=== PATIENT | male | born 1955 | race Two or more races ===

== ENCOUNTER 2021-04-27 13:09 | Inpatient (IN) | payer OTHER ==
[2021-04-27] MEDS ORDERED: ACETAMINOPHEN 1000 MG/100 ML BAG IVPB ONE (15:40)
[2021-04-27] MEDS ORDERED: ACETAMINOPHEN INJECTION 100 ML IVPB ONE (15:42)
[2021-04-27 16:25] LABS: BASO % 0.6 % (0-2.0); EOS % 2.9 % (0-4.5); HEMATOCRIT 22.8 % (35.4-49); HEMOGLOBIN 7.9 GM/dL (11.7-16.9); MCH 29.5 pg (25.7-33.7); MCHC 34.4 g/dl (32.0-35.9); MEAN CELL VOLUME 85.7 fl (80-96); MEAN PLT VOLUME 8.3 fl (7.5-11.1); NEUT % 61.5 % (42.8-82.8); PLATELET COUNT 344 10^3/uL (134-434); RBC 2.66 M/mm3 (4.00-5.60); RDW 14.6 % (11.9-15.9); WHITE BLOOD COUNT 6.3 K/mm3 (4.0-10.0)
[2021-04-27 17:01] LABS: CHLORIDE 95 mmol/L (98-107); SODIUM 130 mmol/L (136-145)
[2021-04-27 17:03] LABS: CALCIUM 11.6 mg/dL (8.5-10.1)
[2021-04-27 17:04] LABS: ALBUMIN 3.3 g/dl (3.4-5.0); ANION GAP 10 MMOL/L (8-16); BLOOD UREA NITROGEN 32.4 mg/dL (7-18); CO2 24 mmol/L (21-32); GLUCOSE,RANDOM 97 mg/dL (74-106)
[2021-04-27 17:07] LABS: CREATININE 1.3 mg/dL (0.55-1.3); SGOT/AST 42 U/L (15-37); SGPT/ALT 15 U/L (13-61)
[2021-04-27 17:09] LABS: BILIRUBIN,TOTAL 0.4 mg/dL (0.2-1); TOT PROT 6.6 g/dl (6.4-8.2)
[2021-04-27 17:10] LABS: ALK PHOS 245 U/L (45-117)
[2021-04-27 17:23] LABS: EPI CELLS 0 /uL (0-25.1); HYALINE CASTS 9 /uL (0-3.1); URINE APPEARANCE CLOUDY; URINE BACTERIA >9,000 /uL (0-1359); URINE BILIRUBIN NEGATIVE (NEGATIVE); URINE COLOR YELLOW; URINE GLUCOSE (UA) NEGATIVE (NEGATIVE); URINE KETONE NEGATIVE (NEGATIVE); URINE LEUK ESTERASE 2+ (NEGATIVE); URINE NITRITE NEGATIVE (NEGATIVE); URINE PROTEIN NEGATIVE (NEGATIVE); URINE RBC 16 /uL (0-23.9); URINE UROBILINOGEN 0.2 mg/dL (0.2-1.0); URINE WBC 316 /uL (0-25.8)
[2021-04-27] MEDS ORDERED: CEFTRIAXONE 1,000 MG in DEXTROSE 5%-WATER - 50 ML IVPB ONE (17:58)
[2021-04-27] MEDS ORDERED: CEFTRIAXONE 1 GM/50 ML BAG ONE (20:18)
[2021-04-27] MEDS ORDERED: DOCUSATE SODIUM 100 MG CAPSULE (FP) PO PRN (21:52)
[2021-04-27] MEDS ORDERED: ACETAMINOPHEN 325 MG TABLET (FP) PO PRN (21:52)
[2021-04-27] MEDS ORDERED: SODIUM CHLORIDE 500 ML IV STA (21:52)
[2021-04-27] MEDS ORDERED: SODIUM CHLORIDE 1,000 ML IV SCH (22:00)
[2021-04-27] MEDS ORDERED: HEPARIN NA (PORCINE) 5,000 UNITS/ML 1ML VIAL ONE (22:53)
[2021-04-27] MEDS: HEPARIN NA (PORCINE) 5,000 UNITS/ML 1ML VIAL SQ SCH (23:07)
[2021-04-28 03:40] LABS: PHOSPHOROUS 4.8 mg/dL (2.5-4.9)
[2021-04-28] MEDS: HEPARIN NA (PORCINE) 5,000 UNITS/ML 1ML VIAL SQ SCH ×2 (06:59→13:49)
[2021-04-28] MEDS ORDERED: INSULIN SLIDING SCALE (NOVOLOG) 1 VIAL SQ SCH (07:00)
[2021-04-28 08:09] LABS: INR 1.15 (0.83-1.09); PROTHROMBIN TIME (PATIENT) 13.3 SEC (9.7-13.0)
[2021-04-28 08:10] LABS: HEMATOCRIT 26.7 % (35.4-49); HEMOGLOBIN 8.9 GM/dL (11.7-16.9); MCH 28.9 pg (25.7-33.7); MCHC 33.3 g/dl (32.0-35.9); MEAN CELL VOLUME 86.6 fl (80-96); MEAN PLT VOLUME 8.8 fl (7.5-11.1); PLATELET COUNT 423 10^3/uL (134-434); RBC 3.08 M/mm3 (4.00-5.60); RDW 14.5 % (11.9-15.9); WHITE BLOOD COUNT 7.5 K/mm3 (4.0-10.0)
[2021-04-28] MEDS ORDERED: oxyCODONE HCL 5 MG TABLET PO PRN (08:14)
[2021-04-28] MEDS ORDERED: TAMSULOSIN HCL 0.4 MG CAP ONE (08:29)
[2021-04-28] MEDS: INSULIN SLIDING SCALE (NOVOLOG) 1 VIAL SQ SCH ×4 (08:30→22:15)
[2021-04-28] MEDS: TAMSULOSIN HCL 0.4 MG CAP PO SCH (08:43)
[2021-04-28] MEDS: oxyCODONE HCL 5 MG TABLET PO PRN ×3 (08:43→23:43)
[2021-04-28 08:47] LABS: BLOOD UREA NITROGEN 35.9 mg/dL (7-18); CALCIUM 12.1 mg/dL (8.5-10.1); MAGNESIUM 1.9 mg/dL (1.8-2.4)
[2021-04-28 08:48] LABS: ALBUMIN 3.6 g/dl (3.4-5.0)
[2021-04-28 08:51] LABS: CREATININE 1.4 mg/dL (0.55-1.3)
[2021-04-28 08:52] LABS: BILIRUBIN,TOTAL 0.3 mg/dL (0.2-1); TOT PROT 7.4 g/dl (6.4-8.2)
[2021-04-28 10:12] LABS: RETICULOCYTES 1.73 % (0.5-1.5)
[2021-04-28] MEDS: SODIUM CHLORIDE 1,000 ML IV SCH (10:41)
[2021-04-28] MEDS ORDERED: SERTRALINE HCL 50 MG TABLET (FP) ONE (11:16)
[2021-04-28] MEDS ORDERED: cefTRIAXone SODIUM 1 GM VIAL ONE (11:16)
[2021-04-28] MEDS: SERTRALINE HCL 50 MG TABLET (FP) PO SCH (11:50)
[2021-04-28] MEDS: CEFTRIAXONE 1 GM in DEXTROSE 5%-WATER - 50 ML IVPB SCH (11:50)
[2021-04-28] MEDS: LIDOCAINE 5% TOPICAL PATCH TP SCH (14:00)
[2021-04-28] MEDS: ACETAMINOPHEN 500 MG TABLET (FP) PO PRN (18:27)
[2021-04-28] MEDS: LIDOCAINE PATCH REMOVAL MC SCH (22:15)
[2021-04-28] MEDS: ATORVASTATIN CA 40 MG TABLET (FP) PO SCH (22:15)
[2021-04-29] MEDS: oxyCODONE HCL 5 MG TABLET PO PRN ×3 (04:56→22:06)
[2021-04-29] MEDS ORDERED: SODIUM CHLORIDE 1,000 ML IV SCH (05:00)
[2021-04-29] MEDS: INSULIN SLIDING SCALE (NOVOLOG) 1 VIAL SQ SCH ×4 (06:57→22:12)
[2021-04-29 09:02] LABS: HEMATOCRIT 24.4 % (35.4-49); HEMOGLOBIN 8.4 GM/dL (11.7-16.9); MCH 29.5 pg (25.7-33.7); MCHC 34.3 g/dl (32.0-35.9); MEAN CELL VOLUME 85.9 fl (80-96); PLATELET COUNT 407 10^3/uL (134-434); RBC 2.84 M/mm3 (4.00-5.60); RDW 14.9 % (11.9-15.9); WHITE BLOOD COUNT 5.4 K/mm3 (4.0-10.0)
[2021-04-29 09:13] LABS: ALBUMIN 3.1 g/dl (3.4-5.0); CALCIUM 12.8 mg/dL (8.5-10.1)
[2021-04-29 09:16] LABS: CREATININE 1.4 mg/dL (0.55-1.3)
[2021-04-29 09:17] LABS: TOT PROT 6.5 g/dl (6.4-8.2)
[2021-04-29 09:18] LABS: BILIRUBIN,TOTAL 0.3 mg/dL (0.2-1)
[2021-04-29] MEDS ORDERED: DEXTROSE 5%-WATER - 50 ML IVPB ONE (09:44)
[2021-04-29] MEDS ORDERED: cefTRIAXone SODIUM 1 GM VIAL ONE (09:44)
[2021-04-29] MEDS: ACETAMINOPHEN 500 MG TABLET (FP) PO PRN (09:52)
[2021-04-29] MEDS: SERTRALINE HCL 50 MG TABLET (FP) PO SCH (09:52)
[2021-04-29] MEDS: ENOXAPARIN NA (PORCINE) 40 MG/0.4 ML DISP.SYRIN SQ SCH (09:53)
[2021-04-29] MEDS: LIDOCAINE 5% TOPICAL PATCH TP SCH (09:53)
[2021-04-29] MEDS: CEFTRIAXONE 1 GM in DEXTROSE 5%-WATER - 50 ML IVPB SCH (09:53)
[2021-04-29] MEDS: SODIUM CHLORIDE 1,000 ML IV SCH (09:53)
[2021-04-29] MEDS: TAMSULOSIN HCL 0.4 MG CAP PO SCH (09:53)
[2021-04-29] MEDS ORDERED: oxyCODONE HCL 5 MG TABLET PO PRN (10:11)
[2021-04-29] MEDS ORDERED: ZOLEDRONIC ACID 4 MG in SODIUM CHLORIDE 100 ML IVPB ONE ×2 (11:00→13:15)
[2021-04-29] MEDS ORDERED: PT OWN MED DRAWER 7, Y5N ONE ×2 (12:23→14:56)
[2021-04-29] MEDS: ATORVASTATIN CA 40 MG TABLET (FP) PO SCH (22:06)
[2021-04-29] MEDS: LIDOCAINE PATCH REMOVAL MC SCH (22:07)
[2021-04-30] MEDS: oxyCODONE HCL 5 MG TABLET PO PRN ×3 (03:56→19:08)
[2021-04-30] MEDS: INSULIN SLIDING SCALE (NOVOLOG) 1 VIAL SQ SCH ×4 (06:25→21:40)
[2021-04-30 09:08] LABS: BASO % 0.7 % (0-2.0); EOS % 4.1 % (0-4.5); HEMATOCRIT 24.6 % (35.4-49); HEMOGLOBIN 8.2 GM/dL (11.7-16.9); LYMPH % 19.7 % (8-40); MCH 28.8 pg (25.7-33.7); MCHC 33.5 g/dl (32.0-35.9); MEAN CELL VOLUME 86.1 fl (80-96); MEAN PLT VOLUME 8.1 fl (7.5-11.1); MONO % 3.4 % (3.8-10.2); NEUT % 72.1 % (42.8-82.8); PLATELET COUNT 425 10^3/uL (134-434); RBC 2.86 M/mm3 (4.00-5.60); RDW 14.4 % (11.9-15.9); WHITE BLOOD COUNT 4.7 K/mm3 (4.0-10.0)
[2021-04-30] MEDS ORDERED: cefTRIAXone SODIUM 1 GM VIAL ONE (09:31)
[2021-04-30] MEDS ORDERED: DEXTROSE 5%-WATER - 50 ML IVPB ONE (09:31)
[2021-04-30] MEDS: SERTRALINE HCL 50 MG TABLET (FP) PO SCH (09:41)
[2021-04-30] MEDS: TAMSULOSIN HCL 0.4 MG CAP PO SCH (09:41)
[2021-04-30] MEDS: LIDOCAINE 5% TOPICAL PATCH TP SCH (09:41)
[2021-04-30] MEDS: ENOXAPARIN NA (PORCINE) 40 MG/0.4 ML DISP.SYRIN SQ SCH (09:42)
[2021-04-30] MEDS: CEFTRIAXONE 1 GM in DEXTROSE 5%-WATER - 50 ML IVPB SCH (09:42)
[2021-04-30 09:52] LABS: ALBUMIN 3.1 g/dl (3.4-5.0); CALCIUM 11.8 mg/dL (8.5-10.1)
[2021-04-30 09:53] LABS: BLOOD UREA NITROGEN 32.3 mg/dL (7-18)
[2021-04-30 09:55] LABS: CREATININE 1.4 mg/dL (0.55-1.3); PHOSPHOROUS 3.9 mg/dL (2.5-4.9)
[2021-04-30 09:56] LABS: MAGNESIUM 1.7 mg/dL (1.8-2.4)
[2021-04-30 09:57] LABS: BILIRUBIN,TOTAL 0.7 mg/dL (0.2-1); TOT PROT 6.4 g/dl (6.4-8.2)
[2021-04-30] MEDS ORDERED: ONDANSETRON 4 MG/2 ML VIAL IVPUSH PRN (10:48)
[2021-04-30] MEDS ORDERED: MAGNESIUM OXIDE 400 MG TABLET (FP) PO ONE (11:00)
[2021-04-30] MEDS: ACETAMINOPHEN 500 MG TABLET (FP) PO PRN ×2 (11:07→16:48)
[2021-04-30] MEDS ORDERED: SODIUM CHLORIDE 0.9% 1000 ML INFUS.BAG IV ONE (12:30)
[2021-04-30] MEDS: SODIUM CHLORIDE 0.9% 1000 ML INFUS.BAG IV ONE ×2 (13:00→14:04)
[2021-04-30 13:20] LABS: URINE APPEARANCE CLEAR; URINE BILIRUBIN NEGATIVE (NEGATIVE); URINE COLOR YELLOW; URINE GLUCOSE (UA) NEGATIVE (NEGATIVE); URINE KETONE NEGATIVE (NEGATIVE); URINE LEUK ESTERASE NEGATIVE (NEGATIVE); URINE NITRITE NEGATIVE (NEGATIVE); URINE PROTEIN NEGATIVE (NEGATIVE); URINE UROBILINOGEN 0.2 mg/dL (0.2-1.0)
[2021-04-30] MEDS ORDERED: MEROPENEM 1 GM VIAL (RESTRICTED TO ID) IVPB ONE ×2 (13:40→16:33)
[2021-04-30] MEDS ORDERED: DEXTROSE 5%-WATER 100 ML IVPB ONE ×2 (13:40→16:33)
[2021-04-30] MEDS: MEROPENEM 1 GM in DEXTROSE 5%-WATER 100 ML IVPB SCH ×2 (13:54→17:17)
[2021-04-30] MEDS: SODIUM CHLORIDE 1,000 ML IV SCH (14:01)
[2021-04-30] MEDS: ATORVASTATIN CA 40 MG TABLET (FP) PO SCH (21:40)
[2021-04-30] MEDS: LIDOCAINE PATCH REMOVAL MC SCH (21:40)
[2021-05-01] MEDS ORDERED: DEXTROSE 5%-WATER 100 ML IVPB ONE ×2 (02:42→14:37)
[2021-05-01] MEDS ORDERED: MEROPENEM 1 GM VIAL (RESTRICTED TO ID) IVPB ONE ×2 (02:42→14:37)
[2021-05-01] MEDS ORDERED: MEROPENEM 1 GM in DEXTROSE 5%-WATER 100 ML IVPB ONE (02:45)
[2021-05-01] MEDS: MEROPENEM 1 GM in DEXTROSE 5%-WATER 100 ML IVPB SCH ×3 (02:57→17:59)
[2021-05-01] MEDS ORDERED: INSULIN (NOVOLOG) ASPART 100 UNITS/ML 10ML VIAL ONE (03:53)
[2021-05-01] MEDS: INSULIN SLIDING SCALE (NOVOLOG) 1 VIAL SQ SCH ×4 (06:12→23:08)
[2021-05-01] MEDS: oxyCODONE HCL 5 MG TABLET PO PRN ×2 (08:34→20:22)
[2021-05-01] MEDS: TAMSULOSIN HCL 0.4 MG CAP PO SCH (08:36)
[2021-05-01 09:19] LABS: ALBUMIN 2.8 g/dl (3.4-5.0); BLOOD UREA NITROGEN 28.3 mg/dL (7-18); MAGNESIUM 1.6 mg/dL (1.8-2.4)
[2021-05-01 09:22] LABS: CREATININE 1.4 mg/dL (0.55-1.3); PHOSPHOROUS 2.8 mg/dL (2.5-4.9)
[2021-05-01 09:23] LABS: BILIRUBIN,TOTAL 0.2 mg/dL (0.2-1); TOT PROT 6.1 g/dl (6.4-8.2)
[2021-05-01 09:28] LABS: BASO % 0.6 % (0-2.0); EOS % 2.1 % (0-4.5); HEMATOCRIT 22.7 % (35.4-49); HEMOGLOBIN 7.7 GM/dL (11.7-16.9); LYMPH % 18.2 % (8-40); MCH 29.1 pg (25.7-33.7); MEAN CELL VOLUME 85.8 fl (80-96); MEAN PLT VOLUME 8.1 fl (7.5-11.1); MONO % 5.2 % (3.8-10.2); NEUT % 73.9 % (42.8-82.8); PLATELET COUNT 435 10^3/uL (134-434); RBC 2.65 M/mm3 (4.00-5.60); RDW 14.4 % (11.9-15.9); WHITE BLOOD COUNT 3.9 K/mm3 (4.0-10.0)
[2021-05-01] MEDS: ENOXAPARIN NA (PORCINE) 40 MG/0.4 ML DISP.SYRIN SQ SCH (10:37)
[2021-05-01] MEDS: LIDOCAINE 5% TOPICAL PATCH TP SCH (10:37)
[2021-05-01] MEDS: SERTRALINE HCL 50 MG TABLET (FP) PO SCH (10:37)
[2021-05-01] MEDS: SODIUM CHLORIDE 1,000 ML IV SCH ×2 (10:48→23:55)
[2021-05-01] MEDS ORDERED: MAGNESIUM SULF 50% (8.12 MEQ/2 ML-1 GM VIAL) IVPB ONE (11:15)
[2021-05-01] MEDS: ATORVASTATIN CA 40 MG TABLET (FP) PO SCH (22:24)
[2021-05-01] MEDS: LIDOCAINE PATCH REMOVAL MC SCH (23:09)
[2021-05-02] MEDS ORDERED: MEROPENEM 1 GM VIAL (RESTRICTED TO ID) IVPB ONE ×3 (02:03→18:57)
[2021-05-02] MEDS ORDERED: DEXTROSE 5%-WATER 100 ML IVPB ONE ×3 (02:03→18:58)
[2021-05-02] MEDS: MEROPENEM 1 GM in DEXTROSE 5%-WATER 100 ML IVPB SCH ×3 (02:05→19:04)
[2021-05-02] MEDS: ACETAMINOPHEN 500 MG TABLET (FP) PO PRN ×2 (02:09→22:02)
[2021-05-02] MEDS: INSULIN SLIDING SCALE (NOVOLOG) 1 VIAL SQ SCH ×4 (05:59→22:03)
[2021-05-02 08:25] LABS: HEMATOCRIT 19.3 % (35.4-49); MCH 29.4 pg (25.7-33.7); MCHC 34.4 g/dl (32.0-35.9); MEAN CELL VOLUME 85.5 fl (80-96); MEAN PLT VOLUME 7.8 fl (7.5-11.1); PLATELET COUNT 362 10^3/uL (134-434); RBC 2.25 M/mm3 (4.00-5.60); RDW 14.6 % (11.9-15.9); WHITE BLOOD COUNT 3.7 K/mm3 (4.0-10.0)
[2021-05-02 08:36] LABS: HEMOGLOBIN 6.6 GM/dL (11.7-16.9)
[2021-05-02 08:43] LABS: ALBUMIN 2.6 g/dl (3.4-5.0); BLOOD UREA NITROGEN 20.2 mg/dL (7-18)
[2021-05-02 08:44] LABS: CREATININE 1.1 mg/dL (0.55-1.3)
[2021-05-02 08:46] LABS: BILIRUBIN,TOTAL 0.3 mg/dL (0.2-1); PHOSPHOROUS 2.6 mg/dL (2.5-4.9); TOT PROT 5.5 g/dl (6.4-8.2)
[2021-05-02] MEDS: TAMSULOSIN HCL 0.4 MG CAP PO SCH (09:11)
[2021-05-02] MEDS: LIDOCAINE 5% TOPICAL PATCH TP SCH (10:33)
[2021-05-02] MEDS: ENOXAPARIN NA (PORCINE) 40 MG/0.4 ML DISP.SYRIN SQ SCH (10:34)
[2021-05-02] MEDS: SERTRALINE HCL 50 MG TABLET (FP) PO SCH (10:34)
[2021-05-02] MEDS ORDERED: FENTANYL PATCH WASTE MC PRN (13:39)
[2021-05-02] MEDS ORDERED: fentaNYL 25mcg/hr PATCH.TD72 TD SCH (13:45)
[2021-05-02] MEDS ORDERED: FENTANYL PATCH WASTE TD PRN (13:46)
[2021-05-02] MEDS: oxyCODONE HCL 5 MG TABLET PO PRN ×2 (13:57→18:24)
[2021-05-02 14:04] LABS: BASO % 0.3 % (0-2.0); EOS % 5.5 % (0-4.5); HEMATOCRIT 19.9 % (35.4-49); LYMPH % 31.1 % (8-40); MCH 29.4 pg (25.7-33.7); MCHC 34.5 g/dl (32.0-35.9); MEAN CELL VOLUME 85.2 fl (80-96); MEAN PLT VOLUME 7.5 fl (7.5-11.1); MONO % 7.1 % (3.8-10.2); PLATELET COUNT 366 10^3/uL (134-434); RBC 2.34 M/mm3 (4.00-5.60); RDW 14.8 % (11.9-15.9); WHITE BLOOD COUNT 3.9 K/mm3 (4.0-10.0)
[2021-05-02 14:13] LABS: HEMOGLOBIN 6.9 GM/dL (11.7-16.9)
[2021-05-02 14:15] LABS: URIC ACID 7.4 mg/dL (2.6-7.2)
[2021-05-02] MEDS: fentaNYL 12mcg/hr PATCH.TD72 TD SCH (15:28)
[2021-05-02] MEDS: ATORVASTATIN CA 40 MG TABLET (FP) PO SCH (22:02)
[2021-05-02] MEDS: LIDOCAINE PATCH REMOVAL MC SCH (22:02)
[2021-05-03] MEDS ORDERED: MEROPENEM 1 GM VIAL (RESTRICTED TO ID) IVPB ONE ×3 (01:25→16:36)
[2021-05-03] MEDS ORDERED: DEXTROSE 5%-WATER 100 ML IVPB ONE ×3 (01:26→16:37)
[2021-05-03] MEDS: MEROPENEM 1 GM in DEXTROSE 5%-WATER 100 ML IVPB SCH ×4 (01:45→19:05)
[2021-05-03] MEDS: INSULIN SLIDING SCALE (NOVOLOG) 1 VIAL SQ SCH ×4 (06:14→21:53)
[2021-05-03] MEDS: oxyCODONE HCL 5 MG TABLET PO PRN ×3 (08:27→21:52)
[2021-05-03] MEDS: TAMSULOSIN HCL 0.4 MG CAP PO SCH (08:29)
[2021-05-03 09:46] LABS: HEMATOCRIT 23.5 % (35.4-49); HEMOGLOBIN 7.9 GM/dL (11.7-16.9); MCH 28.7 pg (25.7-33.7); MCHC 33.6 g/dl (32.0-35.9); MEAN CELL VOLUME 85.5 fl (80-96); MEAN PLT VOLUME 8.1 fl (7.5-11.1); PLATELET COUNT 408 10^3/uL (134-434); RBC 2.75 M/mm3 (4.00-5.60); RDW 14.5 % (11.9-15.9); WHITE BLOOD COUNT 4.4 K/mm3 (4.0-10.0)
[2021-05-03 10:01] LABS: ALBUMIN 2.8 g/dl (3.4-5.0); CALCIUM 8.1 mg/dL (8.5-10.1); MAGNESIUM 2.1 mg/dL (1.8-2.4)
[2021-05-03 10:02] LABS: BLOOD UREA NITROGEN 18.8 mg/dL (7-18)
[2021-05-03 10:04] LABS: CREATININE 0.8 mg/dL (0.55-1.3)
[2021-05-03 10:06] LABS: BILIRUBIN,TOTAL 0.4 mg/dL (0.2-1)
[2021-05-03] MEDS: SERTRALINE HCL 50 MG TABLET (FP) PO SCH (10:06)
[2021-05-03] MEDS: ENOXAPARIN NA (PORCINE) 40 MG/0.4 ML DISP.SYRIN SQ SCH (10:06)
[2021-05-03] MEDS: SODIUM CHLORIDE 1,000 ML IV SCH (10:08)
[2021-05-03] MEDS ORDERED: SODIUM PHOSPHATE - 30 MM in SODIUM CHLORIDE 500 ML IVPB ONE (12:00)
[2021-05-03] MEDS ORDERED: SODIUM CHLORIDE 500 ML IV STA (15:25)
[2021-05-03 16:12] VITALS: BMI 25.0
[2021-05-03] MEDS: SODIUM CHLORIDE 0.45% 1,000 ML IV SCH (19:06)
[2021-05-03] MEDS: ACETAMINOPHEN 500 MG TABLET (FP) PO PRN (19:09)
[2021-05-03] MEDS: ATORVASTATIN CA 40 MG TABLET (FP) PO SCH (21:52)
[2021-05-03] MEDS: LIDOCAINE PATCH REMOVAL MC SCH (21:54)
[2021-05-04] MEDS ORDERED: MEROPENEM 1 GM VIAL (RESTRICTED TO ID) IVPB ONE ×3 (00:59→16:40)
[2021-05-04] MEDS ORDERED: DEXTROSE 5%-WATER 100 ML IVPB ONE ×3 (01:00→16:40)
[2021-05-04] MEDS: MEROPENEM 1 GM in DEXTROSE 5%-WATER 100 ML IVPB SCH ×3 (01:27→18:53)
[2021-05-04] MEDS: INSULIN SLIDING SCALE (NOVOLOG) 1 VIAL SQ SCH ×4 (06:11→21:41)
[2021-05-04] MEDS: oxyCODONE HCL 5 MG TABLET PO PRN ×3 (06:50→18:51)
[2021-05-04 09:09] LABS: HEMATOCRIT 23.6 % (35.4-49); HEMOGLOBIN 7.8 GM/dL (11.7-16.9); MCH 28.5 pg (25.7-33.7); MCHC 33.1 g/dl (32.0-35.9); PLATELET COUNT 446 10^3/uL (134-434); RBC 2.75 M/mm3 (4.00-5.60); RDW 14.6 % (11.9-15.9); WHITE BLOOD COUNT 5.5 K/mm3 (4.0-10.0)
[2021-05-04 09:41] LABS: CALCIUM 8.1 mg/dL (8.5-10.1)
[2021-05-04 09:42] LABS: ALBUMIN 2.9 g/dl (3.4-5.0); BLOOD UREA NITROGEN 14.6 mg/dL (7-18); MAGNESIUM 2.1 mg/dL (1.8-2.4)
[2021-05-04 09:45] LABS: CREATININE 0.7 mg/dL (0.55-1.3); PHOSPHOROUS 2.2 mg/dL (2.5-4.9)
[2021-05-04 09:46] LABS: BILIRUBIN,TOTAL 0.2 mg/dL (0.2-1)
[2021-05-04] MEDS: SERTRALINE HCL 50 MG TABLET (FP) PO SCH (10:58)
[2021-05-04] MEDS: ENOXAPARIN NA (PORCINE) 40 MG/0.4 ML DISP.SYRIN SQ SCH (10:58)
[2021-05-04] MEDS: TAMSULOSIN HCL 0.4 MG CAP PO SCH (10:59)
[2021-05-04] MEDS ORDERED: FENTANYL PATCH WASTE MC PRN (11:00)
[2021-05-04] MEDS ORDERED: morphine SULFATE 4 MG/ML VIAL IVPUSH PRN (11:02)
[2021-05-04] MEDS: SODIUM CHLORIDE 0.45% 1,000 ML IV SCH (16:02)
[2021-05-04] MEDS ORDERED: SODIUM PHOSPHATE - 30 MM in SODIUM CHLORIDE 250 ML IVPB ONE (16:30)
[2021-05-04] MEDS: ATORVASTATIN CA 40 MG TABLET (FP) PO SCH (21:33)
[2021-05-04] MEDS: LIDOCAINE PATCH REMOVAL MC SCH (21:34)
[2021-05-04] MEDS: ACETAMINOPHEN 500 MG TABLET (FP) PO PRN (21:34)
[2021-05-05] MEDS ORDERED: DEXTROSE 5%-WATER 100 ML IVPB ONE ×2 (02:23→10:27)
[2021-05-05] MEDS ORDERED: MEROPENEM 1 GM VIAL (RESTRICTED TO ID) IVPB ONE ×2 (02:23→10:27)
[2021-05-05] MEDS: oxyCODONE HCL 5 MG TABLET PO PRN ×3 (02:26→21:04)
[2021-05-05] MEDS: MEROPENEM 1 GM in DEXTROSE 5%-WATER 100 ML IVPB SCH ×2 (02:26→10:45)
[2021-05-05] MEDS: INSULIN SLIDING SCALE (NOVOLOG) 1 VIAL SQ SCH ×4 (07:07→21:14)
[2021-05-05] MEDS ORDERED: INSULIN (NOVOLOG) ASPART 100 UNITS/ML 10ML VIAL ONE (07:55)
[2021-05-05] MEDS ORDERED: oxyCODONE HCL 5 MG TABLET ONE (08:55)
[2021-05-05] MEDS: TAMSULOSIN HCL 0.4 MG CAP PO SCH (08:57)
[2021-05-05] MEDS: ENOXAPARIN NA (PORCINE) 40 MG/0.4 ML DISP.SYRIN SQ SCH (10:45)
[2021-05-05] MEDS: SERTRALINE HCL 50 MG TABLET (FP) PO SCH (10:46)
[2021-05-05 10:59] LABS: HEMATOCRIT 23.7 % (35.4-49); HEMOGLOBIN 7.9 GM/dL (11.7-16.9); MCH 28.9 pg (25.7-33.7); MCHC 33.5 g/dl (32.0-35.9); MEAN CELL VOLUME 86.4 fl (80-96); MEAN PLT VOLUME 8.3 fl (7.5-11.1); PLATELET COUNT 464 10^3/uL (134-434); RBC 2.75 M/mm3 (4.00-5.60); RDW 14.8 % (11.9-15.9); WHITE BLOOD COUNT 5.6 K/mm3 (4.0-10.0)
[2021-05-05 11:15] LABS: ALBUMIN 2.9 g/dl (3.4-5.0); CALCIUM 7.8 mg/dL (8.5-10.1)
[2021-05-05 11:16] LABS: BLOOD UREA NITROGEN 13.1 mg/dL (7-18)
[2021-05-05 11:19] LABS: CREATININE 0.6 mg/dL (0.55-1.3); PHOSPHOROUS 2.5 mg/dL (2.5-4.9)
[2021-05-05 11:20] LABS: BILIRUBIN,TOTAL 0.2 mg/dL (0.2-1)
[2021-05-05] MEDS: fentaNYL 25mcg/hr PATCH.TD72 TD SCH (14:40)
[2021-05-05] MEDS: fentaNYL 12mcg/hr PATCH.TD72 TD SCH (14:48)
[2021-05-05] MEDS: ACETAMINOPHEN 500 MG TABLET (FP) PO PRN (14:49)
[2021-05-05] MEDS: SODIUM CHLORIDE 0.45% 1,000 ML IV SCH (16:15)
[2021-05-05] MEDS: AMOX TR/POT CLAV 500MG/125MG TABLETS (FP) PO SCH (17:39)
[2021-05-05] MEDS: ATORVASTATIN CA 40 MG TABLET (FP) PO SCH (21:03)
[2021-05-05] MEDS: LIDOCAINE PATCH REMOVAL MC SCH (21:11)
[2021-05-06] MEDS: INSULIN SLIDING SCALE (NOVOLOG) 1 VIAL SQ SCH ×4 (06:14→21:26)
[2021-05-06] MEDS: AMOX TR/POT CLAV 500MG/125MG TABLETS (FP) PO SCH ×2 (08:12→17:31)
[2021-05-06] MEDS: TAMSULOSIN HCL 0.4 MG CAP PO SCH (08:12)
[2021-05-06] MEDS: oxyCODONE HCL 5 MG TABLET PO PRN (08:12)
[2021-05-06 09:58] LABS: CALCIUM 8.5 mg/dL (8.5-10.1)
[2021-05-06 09:59] LABS: ALBUMIN 3.1 g/dl (3.4-5.0); BLOOD UREA NITROGEN 12.6 mg/dL (7-18)
[2021-05-06] MEDS ORDERED: oxyCODONE HCL 5 MG TABLET PO SCH ×2 (10:00→10:45)
[2021-05-06 10:02] LABS: CREATININE 0.6 mg/dL (0.55-1.3); PHOSPHOROUS 2.7 mg/dL (2.5-4.9)
[2021-05-06] MEDS: SERTRALINE HCL 50 MG TABLET (FP) PO SCH (10:03)
[2021-05-06] MEDS: ENOXAPARIN NA (PORCINE) 40 MG/0.4 ML DISP.SYRIN SQ SCH (10:03)
[2021-05-06 10:04] LABS: BILIRUBIN,TOTAL 0.2 mg/dL (0.2-1)
[2021-05-06] MEDS: BICALUTAMIDE 50 MG TABLET (FP) PO SCH (10:04)
[2021-05-06 10:05] LABS: TOT PROT 6.4 g/dl (6.4-8.2)
[2021-05-06] MEDS: ACETAMINOPHEN 500 MG TABLET (FP) PO PRN (11:58)
[2021-05-06 12:13] LABS: HEMATOCRIT 22.5 % (35.4-49); HEMOGLOBIN 7.7 GM/dL (11.7-16.9); MCH 29.5 pg (25.7-33.7); MCHC 34.1 g/dl (32.0-35.9); MEAN CELL VOLUME 86.4 fl (80-96); MEAN PLT VOLUME 8.2 fl (7.5-11.1); PLATELET COUNT 469 10^3/uL (134-434); RBC 2.61 M/mm3 (4.00-5.60); RDW 14.7 % (11.9-15.9); WHITE BLOOD COUNT 5.8 K/mm3 (4.0-10.0)
[2021-05-06] MEDS: oxyCODONE HCL 5 MG TABLET PO SCH ×3 (12:30→20:42)
[2021-05-06] MEDS: SODIUM CHLORIDE 0.45% 1,000 ML IV SCH (17:01)
[2021-05-06] MEDS: LIDOCAINE PATCH REMOVAL MC SCH (21:25)
[2021-05-06] MEDS: ATORVASTATIN CA 40 MG TABLET (FP) PO SCH (21:26)
[2021-05-07] MEDS: oxyCODONE HCL 5 MG TABLET PO SCH ×6 (01:00→20:19)
[2021-05-07] MEDS: INSULIN SLIDING SCALE (NOVOLOG) 1 VIAL SQ SCH ×4 (07:10→21:40)
[2021-05-07] MEDS ORDERED: INSULIN (NOVOLOG) ASPART 100 UNITS/ML 10ML VIAL ONE (07:14)
[2021-05-07] MEDS: TAMSULOSIN HCL 0.4 MG CAP PO SCH (08:09)
[2021-05-07] MEDS: AMOX TR/POT CLAV 500MG/125MG TABLETS (FP) PO SCH ×2 (08:10→18:17)
[2021-05-07] MEDS: ENOXAPARIN NA (PORCINE) 40 MG/0.4 ML DISP.SYRIN SQ SCH (09:52)
[2021-05-07] MEDS: SERTRALINE HCL 50 MG TABLET (FP) PO SCH (09:52)
[2021-05-07] MEDS: BICALUTAMIDE 50 MG TABLET (FP) PO SCH (09:52)
[2021-05-07 09:58] LABS: HEMATOCRIT 22.1 % (35.4-49); HEMOGLOBIN 7.4 GM/dL (11.7-16.9); MCHC 33.2 g/dl (32.0-35.9); MEAN CELL VOLUME 87.3 fl (80-96); MEAN PLT VOLUME 8.3 fl (7.5-11.1); PLATELET COUNT 461 10^3/uL (134-434); RBC 2.54 M/mm3 (4.00-5.60); RDW 15.1 % (11.9-15.9); WHITE BLOOD COUNT 5.6 K/mm3 (4.0-10.0)
[2021-05-07 10:26] LABS: CALCIUM 8.5 mg/dL (8.5-10.1)
[2021-05-07 10:27] LABS: BLOOD UREA NITROGEN 14.4 mg/dL (7-18); MAGNESIUM 1.5 mg/dL (1.8-2.4)
[2021-05-07 10:31] LABS: CREATININE 0.6 mg/dL (0.55-1.3); PHOSPHOROUS 2.9 mg/dL (2.5-4.9)
[2021-05-07] MEDS: SODIUM CHLORIDE 0.45% 1,000 ML IV SCH ×2 (13:13→16:11)
[2021-05-07] MEDS: LIDOCAINE PATCH REMOVAL MC SCH (21:40)
[2021-05-07] MEDS: ATORVASTATIN CA 40 MG TABLET (FP) PO SCH (21:40)
[2021-05-08] MEDS: oxyCODONE HCL 5 MG TABLET PO SCH ×6 (00:05→21:42)
[2021-05-08] MEDS ORDERED: MAGNESIUM SULF 50% (8.12 MEQ/2 ML-1 GM VIAL) IVPB ONE (01:15)
[2021-05-08] MEDS: INSULIN SLIDING SCALE (NOVOLOG) 1 VIAL SQ SCH ×4 (06:12→21:43)
[2021-05-08] MEDS: TAMSULOSIN HCL 0.4 MG CAP PO SCH (09:10)
[2021-05-08] MEDS: SERTRALINE HCL 50 MG TABLET (FP) PO SCH (09:10)
[2021-05-08] MEDS: BICALUTAMIDE 50 MG TABLET (FP) PO SCH (09:10)
[2021-05-08] MEDS: ENOXAPARIN NA (PORCINE) 40 MG/0.4 ML DISP.SYRIN SQ SCH (09:11)
[2021-05-08] MEDS: AMOX TR/POT CLAV 500MG/125MG TABLETS (FP) PO SCH (10:31)
[2021-05-08] MEDS: fentaNYL 25mcg/hr PATCH.TD72 TD SCH (15:14)
[2021-05-08] MEDS: ACETAMINOPHEN 500 MG TABLET (FP) PO PRN (18:00)
[2021-05-08] MEDS: SODIUM CHLORIDE 0.45% 1,000 ML IV SCH (18:56)
[2021-05-08] MEDS: ATORVASTATIN CA 40 MG TABLET (FP) PO SCH (21:43)
[2021-05-08] MEDS: LIDOCAINE PATCH REMOVAL MC SCH (21:44)
[2021-05-09] MEDS: oxyCODONE HCL 5 MG TABLET PO SCH ×7 (02:18→23:02)
[2021-05-09] MEDS: ACETAMINOPHEN 500 MG TABLET (FP) PO PRN (02:21)
[2021-05-09] MEDS: INSULIN SLIDING SCALE (NOVOLOG) 1 VIAL SQ SCH ×4 (06:00→21:08)
[2021-05-09] MEDS: TAMSULOSIN HCL 0.4 MG CAP PO SCH (08:19)
[2021-05-09 09:56] LABS: BASO % 0.5 % (0-2.0); EOS % 4.3 % (0-4.5); HEMATOCRIT 21.9 % (35.4-49); HEMOGLOBIN 7.1 GM/dL (11.7-16.9); LYMPH % 32.9 % (8-40); MCH 28.2 pg (25.7-33.7); MCHC 32.5 g/dl (32.0-35.9); MEAN CELL VOLUME 86.9 fl (80-96); MEAN PLT VOLUME 8.4 fl (7.5-11.1); MONO % 8.6 % (3.8-10.2); NEUT % 53.7 % (42.8-82.8); PLATELET COUNT 475 10^3/uL (134-434); RBC 2.53 M/mm3 (4.00-5.60); RDW 15.2 % (11.9-15.9); WHITE BLOOD COUNT 5.8 K/mm3 (4.0-10.0)
[2021-05-09] MEDS: BICALUTAMIDE 50 MG TABLET (FP) PO SCH (10:06)
[2021-05-09] MEDS: SERTRALINE HCL 50 MG TABLET (FP) PO SCH ×2 (10:10→10:14)
[2021-05-09] MEDS: ENOXAPARIN NA (PORCINE) 40 MG/0.4 ML DISP.SYRIN SQ SCH (10:10)
[2021-05-09 10:19] LABS: CALCIUM 8.4 mg/dL (8.5-10.1)
[2021-05-09 10:20] LABS: BLOOD UREA NITROGEN 13.4 mg/dL (7-18); MAGNESIUM 1.9 mg/dL (1.8-2.4)
[2021-05-09 10:22] LABS: CREATININE 0.6 mg/dL (0.55-1.3); PHOSPHOROUS 4.3 mg/dL (2.5-4.9)
[2021-05-09] MEDS ORDERED: INSULIN (NOVOLOG) ASPART 100 UNITS/ML 10ML VIAL ONE (11:23)
[2021-05-09] MEDS: oxyCODONE HCL 5 MG TABLET PO PRN ×2 (11:26→21:06)
[2021-05-09] MEDS: GABAPENTIN 300 MG CAPSULE PO SCH (21:06)
[2021-05-09] MEDS: ATORVASTATIN CA 40 MG TABLET (FP) PO SCH (21:06)
[2021-05-09] MEDS: LIDOCAINE PATCH REMOVAL MC SCH (21:08)
[2021-05-10] MEDS: oxyCODONE HCL 5 MG TABLET PO SCH ×5 (04:15→21:07)
[2021-05-10] MEDS: oxyCODONE HCL 5 MG TABLET PO PRN (05:24)
[2021-05-10] MEDS: INSULIN SLIDING SCALE (NOVOLOG) 1 VIAL SQ SCH ×4 (06:21→21:14)
[2021-05-10] MEDS: TAMSULOSIN HCL 0.4 MG CAP PO SCH (08:57)
[2021-05-10 10:05] LABS: HEMATOCRIT 21.4 % (35.4-49); HEMOGLOBIN 7.1 GM/dL (11.7-16.9); MCH 28.7 pg (25.7-33.7); MEAN CELL VOLUME 87.2 fl (80-96); MEAN PLT VOLUME 8.3 fl (7.5-11.1); PLATELET COUNT 452 10^3/uL (134-434); RBC 2.46 M/mm3 (4.00-5.60); RDW 15.3 % (11.9-15.9); WHITE BLOOD COUNT 6.1 K/mm3 (4.0-10.0)
[2021-05-10 10:37] LABS: BLOOD UREA NITROGEN 14.2 mg/dL (7-18); CALCIUM 8.2 mg/dL (8.5-10.1); MAGNESIUM 1.7 mg/dL (1.8-2.4)
[2021-05-10 10:40] LABS: CREATININE 0.7 mg/dL (0.55-1.3); PHOSPHOROUS 3.8 mg/dL (2.5-4.9)
[2021-05-10] MEDS: SERTRALINE HCL 50 MG TABLET (FP) PO SCH (11:02)
[2021-05-10] MEDS: ENOXAPARIN NA (PORCINE) 40 MG/0.4 ML DISP.SYRIN SQ SCH (11:02)
[2021-05-10] MEDS: BICALUTAMIDE 50 MG TABLET (FP) PO SCH (11:04)
[2021-05-10] MEDS ORDERED: MAGNESIUM SULF 50% (8.12 MEQ/2 ML-1 GM VIAL) IVPB ONE ×2 (11:56→12:33)
[2021-05-10] MEDS ORDERED: MAGNESIUM OXIDE 400 MG TABLET (FP) PO ONE (13:20)
[2021-05-10] MEDS: ATORVASTATIN CA 40 MG TABLET (FP) PO SCH (21:07)
[2021-05-10] MEDS ORDERED: DULoxetine HCL 30 MG CAPSULE.DR PO SCH (22:00)
[2021-05-10] MEDS: GABAPENTIN 300 MG CAPSULE PO SCH (22:35)
[2021-05-10] MEDS: LIDOCAINE PATCH REMOVAL MC SCH (22:36)
[2021-05-10] MEDS: ACETAMINOPHEN 500 MG TABLET (FP) PO PRN (22:39)
[2021-05-11] MEDS: oxyCODONE HCL 5 MG TABLET PO SCH ×3 (04:03→11:45)
[2021-05-11] MEDS: INSULIN SLIDING SCALE (NOVOLOG) 1 VIAL SQ SCH ×2 (06:36→11:44)
[2021-05-11] MEDS: ACETAMINOPHEN 500 MG TABLET (FP) PO PRN (06:39)
[2021-05-11 07:56] VITALS: TEMP 97.7
[2021-05-11] MEDS: TAMSULOSIN HCL 0.4 MG CAP PO SCH (08:31)
[2021-05-11] MEDS: BICALUTAMIDE 50 MG TABLET (FP) PO SCH (10:50)
[2021-05-11] MEDS: SERTRALINE HCL 50 MG TABLET (FP) PO SCH (10:50)
[2021-05-11] MEDS: ENOXAPARIN NA (PORCINE) 40 MG/0.4 ML DISP.SYRIN SQ SCH (10:51)
[2021-05-11 11:04] LABS: HEMATOCRIT 23.2 % (35.4-49); HEMOGLOBIN 7.6 GM/dL (11.7-16.9); MCH 28.9 pg (25.7-33.7); MCHC 32.7 g/dl (32.0-35.9); MEAN CELL VOLUME 88.3 fl (80-96); MEAN PLT VOLUME 8.5 fl (7.5-11.1); PLATELET COUNT 457 10^3/uL (134-434); RBC 2.63 M/mm3 (4.00-5.60); RDW 15.4 % (11.9-15.9); WHITE BLOOD COUNT 6.4 K/mm3 (4.0-10.0)
[2021-05-11 11:29] VITALS: BP 98/40; PULSE 60
[2021-05-11 11:49] LABS: MAGNESIUM 2.1 mg/dL (1.8-2.4)
[2021-05-11 11:54] LABS: PHOSPHOROUS 4.6 mg/dL (2.5-4.9)
== END 2021-05-11 12:51 | DRG 542 ==
LOC: JER 13:09 → JERBED 14:22 → J8W 04-28 12:17
PROVIDERS: ADMIT Hospitalist; ATTEND Internal Medicine
PROC: 30233N1 Transfusion of Nonautologous Red Blood Cells into Peripheral Vein, Percutaneous Approach (ICD-10-PCS; principal; 2021-05-02)
DX: C79.51 Secondary malignant neoplasm of bone (principal); A41.9 Sepsis, unspecified organism; N39.0 Urinary tract infection, site not specified; E87.1 Hypo-osmolality and hyponatremia; N17.9 Acute kidney failure, unspecified; E87.2 Acidosis; R62.7 Adult failure to thrive; I10 Essential (primary) hypertension; E78.5 Hyperlipidemia, unspecified; E11.9 Type 2 diabetes mellitus without complications; E83.52 Hypercalcemia; C61 Malignant neoplasm of prostate; D63.8 Anemia in other chronic diseases classified elsewhere; B96.1 Klebsiella pneumoniae [K. pneumoniae] as the cause of diseases classified elsewhere
CPT/HCPCS: 36415; 36430; 71045-TC-FY; 71250-TC; 72125-TC; 72128-TC; 72131-TC; 72148-TC; 73030-TC-LT-FY; 74177-TC; 80048; 80053; 81003; 82550; 82553; 82607; 82747; 82962; 83540; 83550; 83605; 83735; 83970; 84100; 84153; 84154; 84443; 84484; 84550; 85014; 85025; 85027; 85045; 85610; 86850; 86900; 86901; 86922; 87040; 87086; 87186; 87804; 93005; 93010; 97116-GP; 97162-GP; 99285-25; C9803; J0131; J1644; J3489; P9058; Q9967; U0003; U0005